=== PATIENT | female | born 2005 | race Asian ===

== ENCOUNTER 2024-06-09 00:49 | Emergency (ER) | payer SELFPAY ==
[~2024-06-09] VITALS: Ht 167.6 cm; Wt 68.4 kg
[2024-06-09 00:52] VITALS: O2SAT 96
[2024-06-09 00:54] VITALS: TEMP 98.6; O2SAT 99
[2024-06-09 03:42] VITALS: BP 111/43; PULSE 89; RESP 18
[2024-06-09] MEDS: IBUPROFEN 600MG TABLET PO NR (03:42)
[2024-06-09] MEDS: ONDANSETRON 4MG ODT PO NR (03:42)
[2024-06-09 04:20] LABS: CLARITY URINE CLEAR (CLEAR); COLOR URINE YELLOW (YELLOW); GLUCOSE URINE NEGATIVE (NEGATIVE); KETONES URINE NEGATIVE (NEGATIVE); LEUKOCYTE ESTERASE URINE NEGATIVE (NEGATIVE); NITRITE URINE NEGATIVE (NEGATIVE); OCCULT BLOOD URINE NEGATIVE (NEGATIVE); PH URINE 5.5 (4.5-8.0); PROTEIN URINE NEGATIVE (NEGATIVE); SPECIFIC GRAVITY URINE 1.028 (1.005-1.030); UROBILINOGEN URINE 0.2 E.U./dL (0.2-1.0)
== END 2024-06-09 05:36 ==
LOC: ER 00:49
DX: M79.10 Myalgia, unspecified site (principal); R51.9 Headache, unspecified; R10.84 Generalized abdominal pain; R11.2 Nausea with vomiting, unspecified; R19.7 Diarrhea, unspecified; R07.89 Other chest pain
CPT/HCPCS: 99284; 71045; 81003; Q0162